=== PATIENT | female | born 1940 | race Caucasian/White ===

== ENCOUNTER 2021-01-15 15:01 | Outpatient (REF) | payer SELFPAY ==
--- NOTE | 2021-01-15 16:19 | MHC.AU.HAS ---
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 Unfortunately, even with the hospital's payment plan, we do not have hearing aids in that budget. I recommended trying PSAPs in the intermediate peres range. Advised that I would do some research on best options and email them to her. She states that she has an active social life and spends a lot of time with family and caring for her grandchildren. Primary Diagnosis: H90.3 Bilateral Sensorineural Hearing Loss Signature: Provider: Alejandrina Sheehan, CCC-A
== END 2021-01-15 15:02 | disposition home or self-care (01) ==
LOC: HO.HAP 15:01
PROVIDERS: Visit Provider Otolaryngology
DX: Z13.89 Encounter for screening for other disorder (principal)